=== PATIENT | female | born 1955 | race Caucasian/White ===

== ENCOUNTER → 2017-09-16 15:15 | Outpatient (CLI) | payer OTHER, SELFPAY ==
--- NOTE | 2017-09-16 15:21 | BI_ITS ---
MAMMOGRAPHY - BILATERAL SCREENING REASON FOR EXAM: Female, 61 years old. Routine annual screening examination. PERTINENT HISTORY: Non-contributory. TECHNIQUE: Digital bilateral breast timothy (3D mammographic acquisition) in the CC and MLO projections. 2-D mediolateral oblique (MLO) and craniocaudad (CC) views of both breasts were obtained. CAD: Full Field Digital Mammography with Computer Added Detection was performed. COMPARISON: Comparison is made with prior study dated January 18, 2013. FINDINGS: Breast Composition: There are scattered areas of fibroglandular density. There is a 6.1 mm slightly ill-defined nodule in the deep midportion of the right breast. The patient will be recalled for additional views including 90 degree lateral and compression spot views. No other significant abnormalities are identified. BI/SCREENING MAMM (CAD), BILAT IMPRESSION: 6.1 mm nodular density in the right breast as described. The patient will be recalled for additional views. Recall Side: Right Breast ASSESSMENT CATEGORY: BIRADS Category 0: Incomplete. Need additional imaging evaluation. A letter regarding these results will be sent to the patient by the facility within 30 days. Approximately 10% of breast cancers are not detected by mammography. A normal mammogram should not delay biopsy of a clinically suspicious abnormality. [id number] Electronically Signed: Ajith Espinoza MD at 8:22 EDT Tel [phone], Service support ,
== END ==
PROVIDERS: Family Provider Family Medicine; PCP Family Medicine; Visit Provider Family Medicine
DX: Z12.31 Encounter for screening mammogram for malignant neoplasm of breast (principal); N63.10 Unspecified lump in the right breast, unspecified quadrant
CPT/HCPCS: 77063; 77067

== ENCOUNTER → 2017-09-26 09:23 | Outpatient (CLI) | payer OTHER, SELFPAY ==
--- NOTE | 2017-09-26 09:31 | US_ITS ---
STUDY: ULTRASOUND BREAST - RIGHT REASON FOR EXAM: Female, 62 years old. Nodular density in the right breast noted on the screening mammography TECHNIQUE: Axial and longitudinal images of the RIGHT breast were performed with a high resolution ultrasound transducer. COMPARISON: None. FINDINGS: RIGHT Breast: There is no evidence of cyst formation, abnormal mass or other ultrasound abnormality is seen in the right breast. US/Breast Complete Unilateral IMPRESSION: Benign findings. ASSESSMENT CATEGORY: BIRADS Category 2: Benign. A letter regarding these results will be sent to the patient by the facility within 30 days. Electronically Signed: Margy Killian MD at 13:39 EDT Tel , Service support ,
--- NOTE | 2017-09-26 09:31 | BI_ITS ---
MAMMOGRAPHY - UNILATERAL DIAGNOSTIC: RIGHT BREAST REASON FOR EXAM: Female, 62 years old. 6.1 mm nodular density in the right breast PERTINENT HISTORY: Non-contributory. TECHNIQUE: Digital unilateral spot compression views (3D mammographic acquisition) in the CC and MLO projections. 2-D lateral medial (LM) of the right breast were obtained. CAD: Full Field Digital Mammography with Computer Added Detection was performed. COMPARISON: None. FINDINGS: Breast Composition: There are scattered areas of fibroglandular density. There are no dominant masses or suspicious calcifications. The previously described nodular density disperses was spot compression and is not seen on the lateral medial view. An ultrasound evaluation of the right breast is recommended and is performed at the same day. Study evaluation of the No other significant abnormalities are identified. BI/DIAG MAMM W/CAD, UNILAT IMPRESSION: Further ultrasonographic evaluation recommended, as described above. (I) ASSESSMENT CATEGORY: BIRADS Category 0: Incomplete. Need additional imaging evaluation. A letter regarding these results will be sent to the patient by the facility within 30 days. Approximately 10% of breast cancers are not detected by mammography. A normal mammogram should not delay biopsy of a clinically suspicious abnormality. Electronically Signed: Margy Killian MD at 13:36 EDT Tel , Service support ,
== END ==
PROVIDERS: Family Provider Family Medicine; PCP Family Medicine; Visit Provider Family Medicine
DX: R92.8 Other abnormal and inconclusive findings on diagnostic imaging of breast (principal)
CPT/HCPCS: 76641; 76642; 77062; 77065; G0279

== ENCOUNTER → 2018-06-26 09:08 | Outpatient (CLI) | payer OTHER, SELFPAY ==
[2018-06-26 12:20] LABS: Absolute Lymphocyte Count 1.37 X10^3/ul (0.83-4.51); Absolute Neutrophil Count 2.3 X10^3/uL (2.0-7.7); Basophil# 0.03 X10^3/uL; Basophil% 0.7 % (0-1); Eosinophil# 0.13 X10^3/uL; Eosinophils% 3.1 % (0-5); Hematocrit 40.5 % (37-47); Hemoglobin 13.8 g/dl (12.0-15.0); Lymphocyte # 1.37 X10^3/ul (4.0); Lymphocyte % 32.3 % (19-41); Mean Corp Hgb Conc 34.1 g/gl (32-36); Mean Corpuscular Hgb 30.3 pg (27.0-32.0); Mean Corpuscular Volume 88.8 fL (81-99); Mean Platelet Vol. 11.5 fl (6.2-12.0); Monocyte# 0.41 X10^3/uL; Monocyte% 9.7 % (0-10); Neutrophil % 54.2 % (47-70); Platelet Count 212 K/mm3 (150-450); RBC Distribution Width CV 13.5 % (11.6-14.6); RBC Distribution Width SD 43.7 fl (35.1-43.9); Red Blood Count 4.56 M/mm3 (4.2-5.4); White Blood Count 4.2 K/mm3 (4.4-11.0)
[2018-06-26 12:21] LABS: POSITIVE COUNT NO; POSITIVE DIFFERENTIAL NO; POSITIVE MORPHOLOGY NO
[2018-06-26 12:37] LABS: Hemoglobin A1c 5.8 % (4.2-6.3)
[2018-06-26 12:39] LABS: ALB/GLOB Ratio 0.9 RATIO (0.9-2.4); AST(SGOT) 17 U/L (15-37); Alanine Aminotransfer ALT/SGPT 31 U/L (13-56); Albumin, Serum 3.7 g/dL (3.2-5.0); Alkaline Phosphatase 56 U/L (45-117); Anion Gap 4 (5-15); BUN 20 mg/dL (7-18); BUN/Creat Ratio 22.4 RATIO (10-20); Calcium,Total 8.3 mg/dL (8.5-10.1); Chloride 107 mmol/L (98-107); Cholesterol 212 mg/dL (200); Creatinine, Serum 0.89 mg/dL (0.55-1.02); EST Glomerular Filtration Rate 68 mL/min (>60); Est Glom Filt Rate - Afr Amer 82 mL/min (>60); Globulin 4.2 g/dL (2.2-4.2); Glucose 106 mg/dL (74-106); High Density Lipoprotein 35 mg/dL; Potassium 3.8 mmol/L (3.5-5.1); Protein, Total 7.9 g/dL (6.4-8.2); Sodium Level 139 mmol/L (136-145); Triglycerides 190 mg/dL; Very Low Density Lipoprotein 38 mg/dL (5-40)
== END ==
PROVIDERS: Family Provider Family Medicine; PCP Family Medicine; Visit Provider Family Medicine
DX: Z00.01 Encounter for general adult medical examination with abnormal findings (principal); I10 Essential (primary) hypertension; E78.1 Pure hyperglyceridemia; R73.01 Impaired fasting glucose
CPT/HCPCS: 36415; 80053; 80061; 83036; 85025

== ENCOUNTER → 2020-01-29 08:49 | Outpatient (CLI) | payer OTHER, SELFPAY ==
[2020-01-29 12:09] LABS: Absolute Lymphocyte Count 1.47 X10^3/uL (0.83-4.51); Absolute Neutrophil Count 2.4 X10^3/uL (2.0-7.7); Basophil# 0.03 X10^3/uL; Basophil% 0.7 % (0-1); Eosinophils% 2.3 % (0-5); Hematocrit 44.3 % (37-47); Hemoglobin 14.8 g/dL (12.0-15.0); Lymphocyte # 1.47 X10^3/ul (4.0); Lymphocyte % 33.6 % (19-41); Mean Corp Hgb Conc 33.4 g/dL (32-36); Mean Corpuscular Hgb 30.4 pg (27.0-32.0); Mean Platelet Vol. 11.7 fl (6.2-12.0); Monocyte# 0.41 X10^3/uL; Monocyte% 9.4 % (0-10); NRBC Flagged by Analyzer 0 % (0-5); Neutrophil # 2.35 X10^3/uL (2.7-7.7); Neutrophil % 53.8 % (47-70); Platelet Count 253 K/mm3 (150-450); RBC Distribution Width SD 43.3 fl (35.1-43.9); Red Blood Count 4.87 M/mm3 (4.2-5.4); White Blood Count 4.4 K/mm3 (4.4-11.0)
[2020-01-29 12:24] LABS: Hemoglobin A1c 5.7 % (3.8-5.6)
[2020-01-29 12:25] LABS: ALB/GLOB Ratio 0.8 RATIO (0.9-2.4); AST(SGOT) 22 U/L (15-37); Alanine Aminotransfer ALT/SGPT 36 U/L (13-56); Albumin, Serum 3.9 g/dL (3.2-5.0); Alkaline Phosphatase 54 U/L (45-117); Anion Gap 7 (5-15); BUN 15 mg/dL (7-18); BUN/Creat Ratio 18.1 RATIO (10-20); Calcium,Total 9.1 mg/dL (8.5-10.1); Chloride 103 mmol/L (98-107); Cholesterol 219 mg/dL (200); Creatinine, Serum 0.83 mg/dL (0.55-1.02); EST Glomerular Filtration Rate 73 mL/min (>60); Est Glom Filt Rate - Afr Amer 89 mL/min (>60); Globulin 4.6 g/dL (2.2-4.2); Glucose 102 mg/dL (74-106); High Density Lipoprotein 39 mg/dL; Potassium 3.7 mmol/L (3.5-5.1); Protein, Total 8.5 g/dL (6.4-8.2); Sodium Level 137 mmol/L (136-145); Triglycerides 237 mg/dL; Very Low Density Lipoprotein 47 mg/dL (5-40)
== END ==
PROVIDERS: PCP Family Medicine; Visit Provider Family Medicine
DX: Z00.00 Encounter for general adult medical examination without abnormal findings (principal); R73.01 Impaired fasting glucose
CPT/HCPCS: 36415; 80053; 80061; 83036; 85025

== ENCOUNTER 2021-10-21 12:22 | Emergency (ER) | payer MEDICARE, OTHER, SELFPAY ==
[2021-10-21 12:24] VITALS: BP 167/110; PULSE 102; RESP 16; TEMP 36.7; O2SAT 98; BMI 33.5
--- NOTE | 2021-10-21 12:37 | EX.ED.DYSGE1 ---
HPI History of Present Illness Chief Complaint: Lower Extremity Injury Narrative Narrative: Patient was seen outpatient for the past week and was complaining of leg pain, it was rating into the groin and the thought was that she may have had a kidney stone she had a CT which showed a uterine mass. She subsequently went for an MRI and was found to have a large uterine mass with another necrotic mass in the left adnexa and also a probable DVT in the left external iliac vein. She was sent to the emergency department for this. 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 She has no prior DVT history. [facility] Medical History CHF (congestive heart failure) HTN (hypertension) Kidney stone Tonsillectomy planned Home Medications apixaban 5 mg (74 tabs) tablets in a dose pack (Eliquis DVT-PE Treat 30D Start) 5 mg PO BID #74 tabs 10/21/21 [Rx Last Taken Unknown] Allergy/AdvReac Type Severity Reaction Status Date / Time erythromycin base Allergy Hives Verified 10/21/21 12:23 Penicillins Allergy Hives Verified 10/21/21 12:23 Social History Smoking Status: Never smoker ROS ROS ED ROS Narrative Past medical history: Reviewed Medications: Reviewed Social history: Noncontributory Review of systems: All systems negative except as indicated General: No fever Eyes: No visual changes ENT: No upper airway congestion, normal voice Neck: No neck pain Cardiovascular: No chest pain Respiratory: No shortness of breath or cough Gastrointestinal: Some abdominal pain in the left lower abdomen and suprapubic region Genitourinary: No dysuria Musculoskeletal: Left leg pain as in HPI Skin: No rash Neurological: No memory loss, confusion or any focal weakness Psych: No recent behavioral changes Hematologic: No easy bleeding or easy bruising EXAM Physical Exam Narrative Exam Narrative: Physical exam General: Well nourished, Well developed, No Acute Distress Head: Normocephalic, Atraumatic Eyes: Conjunctiva not pale ENT: Moist mucous membranes Neck: Supple, Nontender, No lymphadenopathy Cardiovascular: Regular rate, Regular rhythm Respiratory: No distress, CTA bilaterally Abdomen: Soft, mild suprapubic pain Back: Nontender, Normal Inspection. Negative for: CVA tenderness Extremities: No edema there is some tenderness in the quadricep region and inner thigh region on the left. Skin: Normal color, No rash Neurological: Alert, Normal Strength, Normal Sensation Psychological: Normal affect Const Vital Signs: 10/21/21 12:24 Temperature 98.1 F Temperature Source Temporal Pulse Rate 102 H Respiratory Rate 16 Blood Pressure 167/110 H Blood Pressure Mean 129 Pulse Ox 98 Oxygen Delivery Method Room Air Discharge Plan Triage Chief Complaint: Lower Extremity Injury ED Provider: Jesus Weeks Dx/Rx/DC Orders Clinical Impression: Mass of uterus, DVT (deep venous thrombosis) Instructions: DVT Dc Prescriptions: New Eliquis DVT-PE Treat 30D Start 5 mg (74 tabs) tablets,dose pack 5 mg PO BID Qty: 74 0RF Primary Care Provider: Laurent Mcfadden Referrals: Laurent Mcfadden, [Primary Care Provider] - Activity Restrictions/Additional Instructions: You Have an appointment with Dr. Jose Armando Rodriguez on Tuesday at 1030 a.m. This is at [address], [address], [place] [address]. [address] where he got your MRI she can get it CD copy of that to take with you. Disposition Disposition: Home, Self Care
[2021-10-21] MEDS: APIXABAN 5 MG TABLET PO (12:51)
[2021-10-21 13:41] VITALS: BP 156/78; PULSE 66; RESP 14; TEMP 37.1; O2SAT 99
== END 2021-10-21 13:45 | disposition home or self-care (01) ==
PROVIDERS: Emergency Provider Emergency Medicine; PCP Family Medicine; Visit Provider Emergency Medicine
DX: N85.8 Other specified noninflammatory disorders of uterus (principal); I82.402 Acute embolism and thrombosis of unspecified deep veins of left lower extremity
CPT/HCPCS: 99283

== ENCOUNTER → 2021-11-23 | Outpatient (CLI) | payer MEDICARE, OTHER, SELFPAY ==
--- NOTE | 2021-11-23 06:44 | CT_ITS ---
EXAM: CT CHEST WITH INTRAVENOUS CONTRAST CLINICAL INDICATION: ENDOMETRIAL CA-INITIAL WORK UP TECHNIQUE: Helically acquired images were obtained of the chest with intravenous contrast. This CT exam was performed using one or more of the following dose reduction techniques: automated exposure control, adjustment of the mA and/or kV according to patient size, and/or use of iterative reconstruction technique. This report was created using [employer] report generation technology. RADIATION DOSE: CTDIvol = 11.86 mGy, DLP = 456.42 mGy-cmContrast: IV 100mL Isovue-370 COMPARISON: None. FINDINGS: LUNGS AND PLEURAL SPACES: No suspicious pulmonary nodules. No pleural effusion or thickening. No pneumothorax. HEART: Unremarkable. Heart size is normal. No pericardial effusion. No significant coronary artery calcifications. MEDIASTINUM: Unremarkable. No mediastinal or hilar adenopathy. Esophagus is unremarkable. No hiatal hernia. THYROID: Bilateral complex cystic or necrotic masses in the thyroid, the right is 4.4 cm AP by at least 4 cm craniocaudal, the left is 3.6 cm AP by 4.2 cm craniocaudal, with 2 small additional hypodense lesions in the lower pole left kidney and subtle lesion in the isthmus. Diffusely enlarged thyroid and presumed multinodular goiter but thyroid ultrasound is suggested if not previously evaluated. BONES/JOINTS: Unremarkable. No suspicious lytic or blastic abnormality. VASCULATURE: Unremarkable. Thoracic aorta is non-dilated. No thoracic aortic dissection. No obvious central pulmonary embolism although this study was not performed with the pulmonary embolism protocol. LYMPH NODES: No mediastinal adenopathy. LIVER: Mild low-attenuation fatty liver is partially included. CT/Chest WITH Contrast IMPRESSION: 1. No acute intrathoracic abnormality. No evidence of metastatic intrathoracic disease. 2. Diffusely enlarged multinodular thyroid. Report from October 20, 2012 thyroid ultrasound mentioned 4.5 cm solid nodule in the right lobe and 1.9 cm solid nodule in the left lobe and subcentimeter cyst. Radionuclide exam of the thyroid in 2012 described findings consistent with multinodular goiter. Correlate clinically with any interval change on exam from 2013, repeat imaging could be considered if thought to be indicated. Electronically Signed: Ivette Castorena MD at 8:13 EDT ,
[2021-11-23 07:11] LABS: CREATININE FINGERSTICK < 0.9 mg/dL (0.55-1.02); EGFR FINGERSTICK > 60.0000 mL/min (>60)
== END | disposition home or self-care (01) ==
LOC: CT 06:43
PROVIDERS: PCP Family Medicine; Referring Provider Internal Medicine Medical Oncology; Visit Provider Internal Medicine Medical Oncology
DX: C54.1 Malignant neoplasm of endometrium (principal)
CPT/HCPCS: 71260; Q9967

== ENCOUNTER 2021-11-25 09:20 | Day surgery (SDC) | payer MEDICARE, OTHER, SELFPAY ==
--- NOTE | 2021-11-25 09:38 | PCM.HP.BLA ---
History and Physical Date of Admission: 11/25/21 Intake Vital Signs ? 11/24/2207:49 Height 5 ft 6 in Weight: 203 lb BMI 32.8 BP 139/93 H Blood Pressure Location Rt brachial Position Sitting Respiration 16 Pulse 80 Pulse Source Monitor Temp 97.7 F L Temp Source Temporal Pulse Oximetry (%) 99 Oxygen Delivery Method room air Intake Visit Reasons:?PORT PLACEMENT Chief Complaint: Port Placement Hospice Community Liaison Required: No Is patient in pain?: No Allergies erythromycin base Allergy (Verified 11/23/21 08:52) HivesPenicillins Allergy (Verified 11/23/21 08:52) Hives Medications amlodipine 10 mg tablet 10 mg PO DAILY 11/18/21 [History Confirmed 11/23/21] hydrochlorothiazide 12.5 mg capsule 12.5 mg PO DAILY 11/18/21 [History Confirmed 11/23/21] PFSH Medical History?(Updated 11/23/21 @ 09:[address] Giovanni Baltazar MD) CHF (congestive heart failure) History of blood clots HTN (hypertension) Kidney stone Tonsillectomy planned Surgical History? H/O: hysterectomy Hx of tonsillectomy Family History? Mother Heart disease DiabetesGrandfather Cancer ?? ? prostateOther Bleeding disorder Social History? Smoking Status:? Never smoker HPI HPI HPI: 66-year-old female with endometrial cancer here for discussion of chest port placement.? ROS General General: No weight change, appetite, fatigue, colon cancer, breast cancer or weakness HEENT HEENT: No difficulty swallowing, eye injury, eye surgery, swollen glands or hoarseness Endo Endocrine: No thyroid disease, diabetes mellitus, thyroid cancer, Hair loss, heat intolerance or cold intolerance Skin Skin: No rash or changing moles Musc Musculoskeletal: No back problems, arthritis, rheumatoid arthritis, gout or joint pain Cardio Cardiovascular: Yes high blood pressure; No murmur, pacemaker, heart disease, atrial fibrillation, heart attack, heart stent, palpitations, shortness of breat with exertion or chest pain Psych Psychiatric: No depression, anxiety or hearing voices Resp Respiratory: No shortness of breath, No sleep apnea, No cough, No COPD, No asthma, No emphysema and No wheezing Gastro Gastrointestinal: No abdominal pain, No nausea or vomiting, No diarrhea, No constipation, No blood in stool, No acid reflux, No hemorrhoids, No ulcers, No gallbladder problem and No black,tarry stools Ishan Hematologic: No blood thinners, No blood disorders, No bleeding, No anemia and Yes blood clots Neuro Neurologic: No system reviewed and no additional complaints, except as documented, No as per HPI, No abnormal gait, No abnormal hearing, No abnormal movements, No abnormal speech, No behavioral changes, No burning sensations, No confusion, No convulsions, No disequilibrium, No dizziness, No localized weakness, No frequent falls, No headache(s), No lack of coordination, No loss of vision, No memory loss, No numbness, No other visual disturbances, No radicular pain, No restless legs, No sensory deficit, No syncope, No tingling, No tremor(s), No weakness and No other Exam Const General: cooperative Orientation: alert and oriented x3 [facility] Head: normal to inspection Neck Neck: normal visual inspection and full ROM Chest Chest palpation & inspection: normal inspection of the chest Resp Effort & Inspection: normal respiratory effort Auscultation: clear to auscultation bilaterally Cardio Rate: regular rate Rhythm: regular rhythm GI Inspection: non-distended Palpation: soft and nontender Skin General: no rashes or lesions noted Neuro General: patient alert and patient oriented x3 Extrem General: full ROM Psych Appearance: grossly normal Mental Status: mental status grossly normal Assessment and Plan Assessment and Plan (1) Encounter for insertion of venous access port: ?Status:?Acute ?Plan: The patient is here to discuss chest port placement for endometrial cancer.? I discussed right chest port placement with her in detail.? I discussed the procedure in detail as well as the risks including modality to bleeding, pneumothorax, infection, line infection or DVT.? Patient understands all the risks and is willing to proceed. Giovanni Baltazar MD Pager: [facility] [address] [place] [address], [address] [place] [address] Office: I have re-examined the patient. There are no clinical changes since date of exam.
[2021-11-25 09:39] VITALS: BP 131/80; PULSE 86; RESP 16; TEMP 36.7; O2SAT 100; BMI 31.2
[2021-11-25] MEDS: Lactated Ringers 1,000 ML 15 ML IV (09:45)
[2021-11-25] MEDS: Clindamycin 900 MG/50 ML BAG 75 MG IV (11:25)
[2021-11-25] MEDS: Lidocaine 1% /Epi 1:100 (20ml) 20 ML Vial (11:38)
[2021-11-25 12:00] VITALS: BP 121/62; BP 131/80; PULSE 67; RESP 16; TEMP 36.6; O2SAT 98
--- NOTE | 2021-11-25 12:00 | PCM.OPRPT ---
Report of Operation Date of Procedure: 11/25/21 Pre-Operative Diagnosis: Endometrial cancer and need for vascular access port Post-Operative Diagnosis: Same Surgery/Procedure Performed:: Ultrasound and fluoroscopy guided right chest port placement utilizing right IJ Description of Procedure: After obtaining informed consent patient was brought back to the operating room MAC anesthesia was induced and the right chest and neck were prepped in normal sterile fashion. Ultrasound was used to evaluate both IJs and the right IJ was selected. Next, using a needle, the right IJ was accessed and a guidewire was passed on into the superior vena cava under fluoroscopy guidance. A small incision was made over the puncture site and the dilator introducer was placed over the guidewire. Next this was capped and the pocket was made for the port. 1% lidocaine with epinephrine was injected in the proposed port site. An incision was made with scalpel. Electrocautery was used to make a pocket under the skin and subcutaneous tissue. Hemostasis was obtained. Next, the catheter was tunneled up to the neck incision site and placed through the introducer. The peel-away introducer was removed and the position of the catheter was confirmed on fluoroscopy. Next, the catheter was trimmed and attached to the port with the locking device. Interrupted 2-0 Vicryl sutures were used to anchor the port to the chest wall and then the port was placed inside the pocket. The pocket was then flushed with saline and the port irrigated with saline. There was good blood return and the port flushed easily. Next, heparin was injected into the port. The skin was closed with subcutaneous interrupted 3-0 Vicryl sutures. A single 3-0 Vicryl sutures placed under the skin at the neck incision site. Steri-Strips were placed as well as op sites. Patient tolerated procedure well, was taken to PACU in stable condition. Chest x-ray will be obtained. Grafts/Implants Used: 8 [employer] PowerPort Admit VTE Documentation VTE Mechan Device Prophylaxis: SCD's
--- NOTE | 2021-11-25 12:01 | DCINST_ITS ---
Discharge Instructions Procedure Port-A-Cath Diet Discharge Diet: Light diet - advance as tolerated (Pain medication may cause nausea. You should typically eat light foods as you take your pain medication.) Activity Discharge Activity: Return to Normal Activity and May Shower (with your bandage in place in 1-2 days after surgery. DO NOT SHOWER WHEN YOUR PORT IS ACCESSED.) Dressing / Incision Call your doctor if your incision/area has: Continuous Slow Oozing, Sudden Increased Bleeding, Increased Pain/ Swelling, Increased Redness and Foul Smelling Discharge Call your doctor if you observe: Fever of 101 or Higher Remove Dressing in: 2 days Cleanse incision/area with: Soap & Water Follow Up Care Please Follow Up With: Giovanni Baltazar MD When: as needed [phone] Test Results: Test results from this visit will be discussed in further detail at your follow- up appointment, if applicable. Discharge Plan Admission Attending Provider: Giovanni Baltazar Primary Care Provider: Laurent Mcfadden Discharge Orders/Prescriptions Prescriptions: No Action amlodipine 10 mg tablet 10 mg PO DAILY hydrochlorothiazide 12.5 mg capsule 12.5 mg PO DAILY lidocaine-prilocaine 2.5-2.5 % cream 1 applic topical ONCE PRN (Reason: port access) 30 Days Qty: 30 2RF ondansetron 8 mg tablet,disintegrating 8 mg PO Q8H PRN (Reason: nausea and vomiting) Qty: 30 2RF prochlorperazine maleate 10 mg tablet 10 mg PO Q6H PRN (Reason: nausea and vomiting) Qty: 30 2RF Referrals / Follow Up: Laurent Mcfadden DO [Primary Care Provider] - Disposition Disposition (needs filled in before D/C Order can be placed): Home, Self Care
[2021-11-25 12:05] VITALS: BP 112/64; BP 131/80; PULSE 68; RESP 16; O2SAT 100
[2021-11-25 12:10] VITALS: BP 113/64; BP 131/80; PULSE 65; RESP 16; O2SAT 100
--- NOTE | 2021-11-25 12:10 | RAD_ITS ---
STUDY: X-RAY CHEST REASON FOR EXAM: Female, 66 years old. Line placement -- in pacu TECHNIQUE: Single frontal view of the chest. COMPARISON: CT dated 11/23/2021 FINDINGS: The lungs are clear and expanded. There is no demonstrated pleural abnormality. Normal size heart. There is a right-sided central venous catheter placed terminating within the expected region of these appear vena cava. Normal mediastinum and pamella. Normal visualized pulmonary arteries. Normal visualized aortic arch and descending thoracic aorta. Normal visualized thoracic spine. Normal visualized ribs, clavicles, and shoulders. There is no demonstrated abnormality of the visualized soft tissue structures of the upper abdomen. RAD/CXR for Line Placement IMPRESSION: Right sided central venous catheter terminating within the expected region of the superior vena cava. Electronically Signed: Shawna Wiley MD at 12:34 EDT ,
[2021-11-25 12:14] VITALS: BP 112/62; BP 131/80; PULSE 61; RESP 16; TEMP 36.4; O2SAT 100
[2021-11-25 12:50] VITALS: BP 131/80
== END 2021-11-25 12:53 | disposition home or self-care (01) ==
LOC: SDC 09:21 → AC 09:22
PROVIDERS: PCP Family Medicine; Referring Provider Surgery; Visit Provider Surgery
PROC: (CPT 36561; principal; 2021-11-25 10:45)
DX: Z45.2 Encounter for adjustment and management of vascular access device (principal); C54.1 Malignant neoplasm of endometrium; I10 Essential (primary) hypertension; Z86.718 Personal history of other venous thrombosis and embolism; Z79.899 Other long term (current) drug therapy
CPT/HCPCS: 36561; 00532; 71045; 77001; J7120; C1788; J2405

== ENCOUNTER → 2022-05-13 | Outpatient (CLI) | payer MEDICARE, OTHER, SELFPAY ==
--- NOTE | 2022-05-13 07:46 | CT_ITS ---
STUDY: CT ABDOMEN AND PELVIS WITH CONTRAST REASON FOR EXAM: Female, 66 years old. IV ONLY-ASSESS TREATMENT RESPONSE. History of endometrial carcinoma. Recent chemotherapy. RADIATION DOSAGE (If Supplied By Facility): CTDIvol = ( 13.83 ) mGy, DLP = ( 977.34 ) mGycm TECHNIQUE: Transaxial images were obtained from the dome of the diaphragm to the symphysis pubis without oral contrast. IV 100mL Isovue-370 was administered. Sagittal and coronal images were reconstructed. Individualized dose optimization techniques were used for this CT. COMPARISON: None. FINDINGS: The visualized lung bases are unremarkable. The visualized portions of the heart are within normal limits. There is decreased attenuation of the liver consistent with steatosis. Normal gallbladder and extrahepatic biliary system. Normal spleen. Normal pancreas. Normal bilateral adrenal glands. There is an heterogeneously enhancing mass in the lateral midportion of the right kidney measuring 2.4 cm x 1.6 x 2.6 cm. A neoplastic process should be ruled out. 8 mm cyst is seen along the anterior aspect of the left kidney as well as a 1 cm cyst in the posterior medial aspect of the left kidney. Normal visualized stomach. Normal small intestine. There are multiple colonic diverticula consistent with diverticulosis. The appendix is visualized and appears normal. Normal abdominal aorta. There is an IVC filter in place. Normal retroperitoneum. Normal urinary bladder. There is absence of the uterus consistent with a prior hysterectomy. Normal abdominal wall. There are diffuse degenerative changes of the visualized lumbar spine. CT/Abdomen/Pelvis WITH Contrast IMPRESSION: 2.4 cm x 1.6 cm x 2.6 cm heterogeneously enhancing mass in the lateral midportion of the right kidney as described. A neoplastic process should BE ruled out. The patient is status post hysterectomy. A filter is seen within the inferior vena cava. Electronically Signed: Ajith Espinoza MD at 14:31 EST ,
[2022-05-13] MEDS: 0.9% Saline Lock 10 ML Syringe IV (08:04)
== END | disposition home or self-care (01) ==
LOC: CT 07:45
PROVIDERS: PCP Family Medicine; Visit Provider Internal Medicine Medical Oncology
DX: C54.1 Malignant neoplasm of endometrium (principal)
CPT/HCPCS: 74177; Q9967; A4216

== ENCOUNTER → 2022-05-27 | Outpatient (CLI) | payer MEDICARE, SELFPAY ==
--- NOTE | 2022-05-27 07:54 | MRI_ITS ---
STUDY: MRI ABDOMEN WITH AND WITHOUT CONTRAST REASON FOR EXAM: Female, 66 years old. ATTN: kidneys -- ANBNORMAL CT- right KIDNEY MASS- Hx of uterine CA TECHNIQUE: Standardized fat and water weighted pulse sequences were obtained in all 3 orthogonal planes post contrast administration. 19 cc clariscan was administered for the contrast portion of the examination. COMPARISON: 05/13/2022 FINDINGS: Base of the chest is unremarkable. Normal liver. Normal gallbladder and extrahepatic biliary system. Normal spleen. Normal pancreas. Normal bilateral adrenal glands. Solid (intermediate T1, isointense to increased T2) mass of the lateral right kidney measuring 2.8 x 2.6 x 2.4 cm correlates the lesion on recent CT. On out of phase imaging, no significant signal dropout. Following IV contrast, there is moderate, heterogeneous enhancement. The right renal vein is patent. No perinephric adenopathy. No hydronephrosis. Simple, nonenhancing cysts of the bilateral kidneys (Bosniak I) measure up to 1.1 cm on the left side. Visualized hollow viscus structures are unremarkable. Normal abdominal aorta. There is an IVC filter in place. Normal retroperitoneum. Normal abdominal wall. No bone marrow edema. MRI/MRI Abd WITH and W/O Contrast IMPRESSION: Solid right renal mass with contrast enhancement. Differential considerations include clear cell/chromophobic RCC, oncocytoma, minimal fat angiomyolipoma. Recommend either surgical resection (if surgical candidate) versus biopsy to guide treatment decisions/active surveillance. Electronically Signed: Raymon Castillo ([place]), at 10:22 EDT ,
[2022-05-27] MEDS: 0.9% Saline Lock 10 ML Syringe IV (09:32)
== END | disposition home or self-care (01) ==
PROVIDERS: PCP Family Medicine; Referring Provider Internal Medicine Medical Oncology; Visit Provider Internal Medicine Medical Oncology
DX: N28.89 Other specified disorders of kidney and ureter (principal)
CPT/HCPCS: 74183; A9575; A4216

== ENCOUNTER 2022-09-29 10:42 | Observation (INO) | payer MEDICARE, SELFPAY ==
[2022-09-29] VITALS (11 sets, daily range): BP systolic 117–143; BP diastolic 60–74; PULSE 54–88; RESP 16–18; TEMP 35.9–36.8; O2SAT 92–100; BMI 33.0
[2022-09-29] MEDS: Lactated Ringers 1,000 ML 15 ML IV (09:57)
--- NOTE | 2022-09-29 10:42 | PCM.HP.STD ---
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 CINV (chemotherapy-induced nausea and vomiting) Dizziness Encounter for chemotherapy management Encounter for education History of blood clots History of edema History of rheumatic fever HTN (hypertension) Low iron Migraine headache Neuropathy Non-smoker Shortness of breath on exertion Sinus drainage Syncope Wears glasses Home Medications amlodipine 10 mg tablet 10 mg PO DAILY 11/18/21 [History Last Taken 09/29/22] hydrochlorothiazide 12.5 mg capsule 12.5 mg PO DAILY 11/18/21 [History Last Taken Unknown] lidocaine-prilocaine 2.5 %-2.5 % topical cream 1 applic topical ONCE PRN port access 30 days #30 grams 11/23/21 [Rx Last Taken Unknown] ondansetron 8 mg disintegrating tablet 8 mg PO Q8H PRN nausea and vomiting #30 tabs 11/23/21 [Rx Last Taken Unknown] Hair prosthesis #1 ea 05/04/22 [Rx Last Taken Unknown] polysaccharide iron complex 150 mg iron capsule (Ferrex) 150 mg PO DAILY 09/15/22 [History Last Taken Unknown] docusate sodium 100 mg capsule (Colace) 100 mg PO BID #20 caps 09/29/22 [Rx Last Taken Unknown] oxycodone 5 mg tablet 5 mg PO Q6H PRN pain 7 days #14 tabs 09/29/22 [Rx Last Taken Unknown] Allergy/AdvReac Type Severity Reaction Status Date / Time erythromycin base Allergy Hives Verified 09/29/22 09:49 Penicillins Allergy Hives Verified 09/29/22 09:49 Family History Mother Heart disease Diabetes Grandfather Cancer prostate Other Bleeding disorder Surgical History (Updated 09/15/22 @ 13:18 by Barbara Chang) H/O: hysterectomy History of superior vena cava filter placement History of surgery History of surgery Hx of tonsillectomy Social History Smoking Status: Never smoker Vital Signs Vital Signs Vital Signs: 09/29/22 09:51 09/29/22 09:51 Temperature 97.6 F L Temperature Source Temporal Pulse Rate 79 Respiratory Rate 16 Respiratory Pattern Normal Blood Pressure 136/69 H Blood Pressure Mean 91 Blood Pressure Source Monitor Blood Pressure Position Semi-Fowlers Blood Pressure Location Left Arm Pulse Ox 100 Oxygen Delivery Method Room Air Weight Weight: 93 kg Body Mass Index (BMI) 33.0
--- NOTE | 2022-09-29 10:43 | DCINST_ITS ---
Discharge Instructions Diet Discharge Diet: No restrictions and Light diet - advance as tolerated Activity Discharge Activity: Return to Normal Activity Return to work on:: 10/27/22July shower in (days): 1 Lifting Restrictions: no lifting for 6 weeks. Follow Up Care Please Follow Up With: Bernardo Uribe MD When: 2 weeks Test Results: Test results from this visit will be discussed in further detail at your follow- up appointment, if applicable. Discharge Plan Admission Primary Reason for Your Visit: right partial nephrectomy Attending Provider: Bernardo Uribe Primary Care Provider: Laurent Mcfadden Discharge Orders/Prescriptions Prescriptions: New oxycodone 5 mg tablet 5 mg PO Q6H PRN (Reason: pain) 7 Days Qty: 14 0RF docusate sodium [Colace] 100 mg capsule 100 mg PO BID Qty: 20 0RF Continued amlodipine 10 mg tablet 10 mg PO DAILY hydrochlorothiazide 12.5 mg capsule 12.5 mg PO DAILY lidocaine-prilocaine 2.5-2.5 % cream 1 applic topical ONCE PRN (Reason: port access) 30 Days Qty: 30 2RF ondansetron 8 mg tablet,disintegrating 8 mg PO Q8H PRN (Reason: nausea and vomiting) Qty: 30 2RF polysaccharide iron complex [Ferrex 150] 150 mg iron capsule 150 mg PO DAILY (DME) Hair prosthesis See Rx Instructions .Route .MEDSUPPLY Qty: 1 0RF Rx Instructions: As directed Referrals / Follow Up: Bernardo Uribe MD [Med Staff - Active Staff] - Laurent Mcfadden DO [Primary Care Provider] - Disposition Disposition (needs filled in before D/C Order can be placed): Home, Self Care
[2022-09-29] MEDS: Cefazolin 2 GM in 0.9% Normal Saline 100 ML IV (10:47)
--- NOTE | 2022-09-29 11:35 | KID_PTH ---
PATIENT: BRYANNA CARMONA LOC: [facility] U#:[id number] AGE/SX: 67/F ROOM: GA318 RE09/29/[address]: Dr. Bernardo Uribe MD : 1955 BED: 1 DIS: 09/30/2022 SPEC #: [id number] RECD: 09/29/22 14:18 STATUS: [place] #: [id number] DENISE: 09/29/22 11:[address]: Bernardo Uribe DEPT: SURGICAL PATHOLOGY RECD BY: Karey Singh ENTERED: 09/30/22 10:43 SP TYPE: KIDNEY OTHR DR: Dr. Laurent Mcfadden, Tissues: A - Fatty tissue of breast B - Kidney, NOS Procedures: Gen Path Consultation (on slides) Surgery Specimen Level V HEADER OPERATION: Right laparoscopic robotic partial nephrectomy PRE-OP DIAGNOSIS: Right renal mass TISSUE SUBMITTED: A - Right kidney fat over tumor, B - Right renal mass MICROSCOPIC DIAGNOSIS A. Right kidney, fat over tumor, biopsy: Mature adipose tissue. No evidence of malignancy. B. Right renal mass, partial nephrectomy: Consistent with Oncocytoma. See Comment. AM:ketty 10/01/2022 COMMENT B. This case is reviewed in consultation with Dr. Ratliff of [facility] who concurs with the above diagnosis. The complete consultative report is viewable in EMR. Case has been reviewed in consultation with Dr. Mensah who concurs with the above diagnosis. IDC:TIERA MICROSCOPIC DESCRIPTION Slides are reviewed. GROSS DESCRIPTION A - Received in fixative is one container labeled with the patient's name and designated right kidney fat over tumor. The specimen consists of an irregular piece of adipose tissue measuring 3.0 x 2.5 x 1.0 cm. No mass lesion is identified. The entire specimen is submitted in two cassettes. B - Received in fixative is one container labeled with the patient's name and designated right renal mass. The specimen consists of a partial nephrectomy specimen weighing 8.5 gm and measuring 4.0 x 2.5 x 2.5 cm. Obvious parenchymal resection margin is not oriented. The entire surface of the specimen is inked, serially sectioned and reveal 90% of the specimen is replaced by hemorrhagic mass measuring 2.5 x 2.5 x 1.7 cm. Sections of the mass reveal hemorrhagic cut surfaces. Obvious area of necrosis is not seen. Two detached blood clots are also noted. The entire specimen is submitted in seven cassettes from one end to another. Cassette 7 also contains the detached blood clots. / TIERA:ketty 09/30/2022 TC:0 CPT: 72127 , 47469
--- NOTE | 2022-09-29 12:30 | PCM.OPRPT ---
Report of Operation Date of Procedure: 09/29/22 Pre-Operative Diagnosis: Right renal mass Post-Operative Diagnosis: Right renal mass Surgery/Procedure Performed:: Laparoscopic robotic assisted right partial nephrectomy Description of Surgical Findings:: Patient presents today for robotic partial nephrectomy for a solid enhancing mass in her right kidney She was taken back to the operating room at the smooth induction of anesthesia, she was placed supine on the table, Martinez catheter was placed, see was then transferred to full flank position with the table flexed. The abdomen was prepped and draped in usual sterile fashion. Made a small incision in the mid abdomen put a camera port there right arm port left arm port for the robot I then put an air seal port for suction. We for started off by reflecting the colon off the kidney incising the white line of Toldt and reflecting the colon off the kidney entirely and also mobilizing the liver off the kidney. I then kocherized the duodenum identified the inferior vena cava identified the renal vein and then below the renal vein dissected into the hilum and identified the renal artery. After the renal artery was identified then I went up to the kidney use ultrasound identified the tumor it was a 2.5 cm tumor in the lateral border of the right kidney a little bit posterior. The fat was cleaned off the tumor we did send off the fat over the tumor separate specimen and then we defatted the tumor in the kidney to allow for attempt resection. We placed a clamp on the renal artery and then we started with resecting of the tumor we started at the edge of the tumors all the way around use ultrasound identified by markers and then incised the capsule of the kidney and then got into the parenchyma and then dissected very close to the tumor but did not get into the tumor and enucleated the tumor off the parenchyma until we got inferiorly and then was able to then cauterized the blood vessels to the tumor and then came underneath the tumor and elevated the tumor off the kidney tumor was then removed intact without any violations total capsule gross total grossly was a complete resection. I then placed the tumor in Endo Catch bag and then we closed the resection site with a running V-Loc stitch and then we reapproximated the parenchyma with a running 0 Vicryl stitch using sliding clip technique. Once the parenchyma was reapproximated we unclamped the bulldog from the artery we lower the pressure there was no bleeding from the resection site we extracted the tumor through the air seal port we closed our support with a Víctor Turk stitch we checked again the kidney after 5 minutes with no pneumoperitoneum and there was no bleeding from the resection site the incisions are being closed patient anesthetic is being reversed blood loss very minimal successful removal of a complete tumor from the right kidney. All the sponges and needles were accounted currently being reversed from anesthesia. Surgeon: Bernardo Uribe Type of Anesthesia: General Drains: martinez Estimated Blood Loss (mL): 50 Admit VTE Documentation VTE Present on Admission: No VTE Mechan Device Prophylaxis: SCD's VTE Pharm Prophylaxis ordered?: No
[2022-09-29] MEDS: Bupivacaine Mpf 0.5% 30 ML VIAL (12:39)
[2022-09-29] MEDS: Lactated Ringers 1,000 ML 125 ML IV ×2 (15:47→23:47)
--- NOTE | 2022-09-29 20:00 | NURSING ---
This nurse and PUBLIC WORKS INSPECTOR assisted patient to standing position. Patient walked around her room with nurse and safety aide standing by. Pt did well and had no complaints. Pt did not feel dizzy and stated it felt good to stand up
[2022-09-29] MEDS: Ciprofloxacin 400 MG/200 ML BAG 200 MG IV (22:05)
[2022-09-30 03:00] VITALS: BP 115/56; PULSE 65; RESP 16; TEMP 36.8; O2SAT 93
--- NOTE | 2022-09-30 07:10 | PCM.PN.GU ---
Subjective Subjective s/p partial nephrectomy doing well d/c martinez heplock ivf d/c home Objective Data Objective Data Vital Signs: Vital Signs Temp Pulse Resp BP Pulse Ox O2 Del Method O2 Flow Rate 98.3 F 65 16 115/56 L 93 Room Air 2 09/30/22 03:00 09/30/22 03:00 09/30/22 03:00 09/30/22 03:00 09/30/22 03:00 09/30/22 03:00 09/29/22 17:02 Oxygen Flow Rate (L/min) 2 Oxygen Delivery Method Room Air Weight: 93 kg Body Mass Index (BMI) 33.0 Intake & Output: Intake and Output for Last 24 Hours 09/28/22 09/29/22 09/30/22 23:59 23:59 23:59 Intake Total 2397.5 / 2397.5 Output Total 490 / 890 800 / 800 Balance 1907.5 / 1507.5 -800 / -800
[2022-09-30 09:00] VITALS: BP 117/64; PULSE 64; RESP 14; TEMP 37; O2SAT 93
[2022-09-30 09:53] VITALS: O2SAT 87
--- NOTE | 2022-09-30 10:02 | PHA.DC.MC.R ---
Pharmacy [facility] Service has performed discharge medication reconciliation and counseling for this patient. The patient was counseled on the following discharge medications and changes in medications for homegoing were reviewed. 1. OXYCODONE 2. DOCUSATE The Reason for Use, instructions for use, and potential side effects were reviewed for all new medications. The patient's questions regarding all of their medications were answered. The patient was able to verbally demonstrate an understanding of their discharge medications. The patient's discharge medication list was reviewed for discrepancies and discrepancies were resolved. Patient counselled by Ki Amaro PharmD Candidate
[2022-09-30] MEDS: 0.9% Saline Lock 10 ML Syringe IV (10:22)
== END 2022-09-30 10:37 | disposition home or self-care (01) ==
LOC: MS3 14:35
PROVIDERS: Admitting Provider Urology; PCP Family Medicine; Referring Provider Urology; Visit Provider Urology
PROC: (CPT 50543; principal; 2022-09-29 11:15)
DX: D41.01 Neoplasm of uncertain behavior of right kidney (principal); I10 Essential (primary) hypertension; Z85.42 Personal history of malignant neoplasm of other parts of uterus; Z79.899 Other long term (current) drug therapy; G62.9 Polyneuropathy, unspecified; Z86.718 Personal history of other venous thrombosis and embolism; R06.02 Shortness of breath; E61.1 Iron deficiency
CPT/HCPCS: 50543; S2900; 00862; 88305; 88307; 88325; 93005; 96361; 96365; 99221; J7120; A4216; G0378; J0744; J2405

== ENCOUNTER → 2023-11-08 | Outpatient (CLI) | payer MEDICARE, SELFPAY ==
--- NOTE | 2023-11-08 14:44 | CT_ITS ---
STUDY: CT ABDOMEN AND PELVIS WITH CONTRAST REASON FOR EXAM: Female, 68 years old. HX OF ENDOMETRIAL CA RADIATION DOSAGE (If Supplied By Facility): CTDIvol = ( 16.88 ) mGy, DLP = ( 1070.22 ) mGycm TECHNIQUE: Transaxial images were obtained from the dome of the diaphragm to the symphysis pubis with oral contrast. Oral and amp; IV Readi-CAT and amp; 100mL Isovue-300 was administered. Sagittal and coronal images were reconstructed. Individualized dose optimization techniques were used for this CT. COMPARISON: None. FINDINGS: The visualized lung bases are unremarkable. The visualized portions of the heart are within normal limits. There is decreased attenuation of the liver consistent with steatosis. Normal gallbladder and extrahepatic biliary system. Normal spleen. Normal pancreas. Normal bilateral adrenal glands. The previously seen heterogeneous enhancing mass in the mid lateral portion of the right kidney has been resected. Cortical thinning at that site is seen. Stable small left renal cyst. Normal visualized stomach. Normal small intestine. There are multiple colonic diverticula consistent with diverticulosis. The appendix is visualized and appears normal. There is scattered atherosclerotic calcification of the abdominal aorta, without a demonstrated aneurysm. There is an IVC filter in place. Follow-up as recommended by the condominium property manager. Normal retroperitoneum. Normal urinary bladder. There is absence of the uterus consistent with a prior hysterectomy. Normal abdominal wall. There are degenerative changes of the visualized lumbar spine. CT/Abdomen/Pelvis WITH Contrast IMPRESSION: Status post resection of the enhancing mass in the lateral midportion of the right kidney with postoperative changes and cortical thinning. A filter is seen within the inferior vena cava. Follow up as per condominium property manager recommendation. Stable small left renal cyst. Fatty infiltration of the liver. Status post hysterectomy. Electronically Signed: Ajith Espinoza MD at 14:43 EDT ,
[2023-11-08 15:17] LABS: CREATININE FINGERSTICK < 1.0 mg/dL (0.55-1.02); EGFR FINGERSTICK > 60.0000 mL/min (>60)
[2023-11-08] MEDS: 0.9% Saline Lock 10 ML Syringe IV (15:38)
== END | disposition home or self-care (01) ==
LOC: CT 14:40
PROVIDERS: PCP Family Medicine; Referring Provider Internal Medicine Medical Oncology; Visit Provider Internal Medicine Medical Oncology
DX: C54.1 Malignant neoplasm of endometrium (principal); D30.01 Benign neoplasm of right kidney
CPT/HCPCS: 74177; Q9967; A4216

== ENCOUNTER → 2024-03-30 | Outpatient (CLI) | payer MEDICARE, SELFPAY | END | disposition home or self-care (01) | LOC: LAB.FUTURE 07:56 | PROVIDERS: PCP Family Medicine; Visit Provider Family Medicine | DX: E78.1 Pure hyperglyceridemia (principal) ==

== ENCOUNTER → 2024-04-24 | Outpatient (CLI) | payer MEDICARE, SELFPAY ==
--- NOTE | 2024-04-24 07:47 | BI_ITS ---
PROCEDURE: SCRN MAMM (CAD)W/RAE BILAT REASON FOR EXAM: F, Age 68 y/o, routine mammogram. TECHNIQUE: Bilateral screening digital breast tomosynthesis with 2D and 3D images. Computer aided detection. COMPARISON: Prior exam(s) dating back to September 26, 2017.. FINDINGS: There are scattered areas of fibroglandular density. Stable examination. No suspicious masses, areas of developing architectural distortion, or suspicious calcifications. BI/SCRN MAMM (CAD)W/RAE BILAT IMPRESSION: BI-RADS 2: BENIGN. RECOMMEND ANNUAL MAMMOGRAPHIC SCREENING. Follow-up code: Routine Follow-up The patient will be notified of the results by letter. Reading Location: [place] [id number]
--- NOTE | 2024-04-24 07:49 | BD_ITS ---
EXAM: CLINICAL INDICATION: Determine bone density. CLINICAL HISTORY: Postmenopausal COMPARISON: None TECHNIQUE: Bone densitometry of the lumbar spine and hips was performed using the HOLOGIC DEXA scanner. FINDINGS: Bone Density Measurements: SPINE AP Spine (L1-L4): 1.080 g/cm2 T-Score: 0.3 Z-Score: 2.3 WHO Classification: NORMAL LEFT FEMUR Femoral TOTAL (LEFT): 1.099 g/cm2 T-Score: 1.3 Z-Score: 2.7 WHO Classification: NORMAL Femoral NECK (LEFT): 1.033 g/cm2 T-Score: 1.7 Z-Score: 3.4 WHO Classification: NORMAL RIGHT FEMUR Femoral TOTAL (RIGHT): 0.979 g/cm2 T-Score: 0.3 Z-Score: 1.7 WHO Classification: NORMAL Femoral NECK (RIGHT): 0.879 g/cm2 T-Score: 0.3 Z-Score: 2.0 WHO Classification: Normal BD/Dexa Bone Density Study IMPRESSION: Normal bone density World Health Organization criteria for BMD interpretation classify patients as: Normal (T-score at or above -1.0), Osteopenic (T-score between -1.0 and -2.5),or Osteoporotic (T-score at or below -2.5). The presence of vertebral abnormalities such as scoliosis or osteophytes, or ao rtic/ligamentous calcifications can alter readings of the lumbar spine. In such cases, readings of the hips are more reliable. Reading Location: [place]
== END | disposition home or self-care (01) ==
LOC: OPBD 07:44
PROVIDERS: PCP Family Medicine; Referring Provider Family Medicine; Visit Provider Family Medicine
DX: Z12.31 Encounter for screening mammogram for malignant neoplasm of breast (principal); M81.0 Age-related osteoporosis without current pathological fracture
CPT/HCPCS: 77063; 77067; 77080

== ENCOUNTER → 2024-05-07 | Outpatient (CLI) | payer MEDICARE, SELFPAY ==
--- NOTE | 2024-05-07 13:20 | CT_ITS ---
PROCEDURE: ABDOMEN/PELVIS WITH CONTRAST REASON FOR EXAM: History of endometrial carcinoma. TECHNIQUE: Abdomen and pelvis CT with intravenous contrast. No oral contrast. IV CONTRAST: 100 cc of Isovue-300. COMPARISON: Comparison is made with prior study dated November 08, 2023. FINDINGS: Coronary artery calcification. Lung bases: Clear Liver: Diffuse fatty infiltration. Gallbladder: Unremarkable. Spleen: Unremarkable. Pancreas: Unremarkable. Adrenals: Unremarkable. Kidneys: Stable small left renal cyst. Stable postoperative changes seen along the lateral midportion of the right kidney. Bladder: Unremarkable. Reproductive Organs: Prior hysterectomy. Adnexal regions are unremarkable. Bowel: Colonic diverticulosis without diverticulitis. Appendix: Normal. Lymph nodes: No suspicious lymph node enlargement. Vasculature: Mild diffuse atherosclerotic calcifications are noted. A filter is seen within the inferior vena cava. Peritoneum / Retroperitoneum: No ascites. No free air. Bones: Degenerative changes of the spine. CT/Abdomen/Pelvis WITH Contrast IMPRESSION: Stable examination. One or more dose reduction techniques were used (e.g., Automated exposure contr ol, adjustment of the mA and/or kV according to patient size, use of iterative reconstruction technique). Reading Location: [facility]
[2024-05-07] MEDS: 0.9% Saline Lock 10 ML Syringe IV (13:30)
== END | disposition home or self-care (01) ==
LOC: CT 13:06
PROVIDERS: PCP Family Medicine; Referring Provider Internal Medicine Medical Oncology; Visit Provider Internal Medicine Medical Oncology
DX: C54.1 Malignant neoplasm of endometrium (principal); D30.01 Benign neoplasm of right kidney
CPT/HCPCS: 74177; Q9967

== ENCOUNTER → 2024-11-08 | Outpatient (CLI) | payer MEDICARE, SELFPAY ==
--- NOTE | 2024-11-08 12:37 | CT_ITS ---
PROCEDURE: ABDOMEN/PELVIS W IV CONT ONLY 11/08/2024 REASON FOR EXAM: HX OF ENDOMETRIAL CA Right partial nephrectomy.. TECHNIQUE: Procedure Code: [id number] Modality: CT Procedure: ABDOMEN/PELVIS W IV CONT ONLY Coronal and Sagittal reconstruction series were provided. CONTRAST: Isovue 370 VOLUME: 97 mL One or more dose reduction techniques were used (e.g., Automated exposure control, adjustment of the mA and/or kV according to patient size, use of iterative reconstruction technique. RADIATION DOSE SUMMARY: CTDlvol: 28 mGy DLP: 1005 mGycm COMPARISON: May 2024. FINDINGS: Lung bases: Negative. ABDOMEN Liver: Slight fatty infiltration of the liver. No focal mass or lesion. Biliary system: Negative. Negative for intrahepatic or extrahepatic ductal dilatation. Gallbladder: Mildly contracted. Negative for cholecystitis. Spleen: Negative. Pancreas: Negative. Adrenals: Negative. Kidneys: Surgical changes adjacent to the right kidney with no residual mass. Negative for kidney stones, cysts or masses. Bowel: Moderate increased stool throughout the colon. Diverticulosis particularly sigmoid colon with minimal adjacent inflammation. This inflammation is new since the prior exam. Negative for small or large-bowel obstruction. Appendix: Negative Vasculature: IVC filter. Negative for atherosclerotic vascular calcifications of the abdominal aorta and its branches. Peritoneum / Retroperitoneum: Negative. PELVIS Lymph nodes: Negative for inguinal or iliac adenopathy. Bladder: Urinary bladder negative. Reproductive Organs: Hysterectomy. Bones and Soft Tissues: [id number] degenerative changes of the upper lumbar spine. Otherwise age appropriate degenerative changes of the lumbar spine hips and pelvis. CT/Abdomen/Pelvis W IV Cont ONLY IMPRESSION: Hysterectomy and right partial nephrectomy. Negative for evidence of residual or recurrent neoplasm of the abdomen or pelvi s. Negative for hepatic, adrenal or bony metastatic disease. Diverticulosis Possible very mild diverticulitis of the sigmoid colon. Correlate clinically. Reading Location: [id number]
[2024-11-08] MEDS: 0.9% Saline Lock 10 ML Syringe IV (12:56)
== END | disposition home or self-care (01) ==
LOC: CT 12:34
PROVIDERS: PCP Family Medicine; Referring Provider Internal Medicine Medical Oncology; Visit Provider Internal Medicine Medical Oncology
DX: C54.1 Malignant neoplasm of endometrium (principal); D30.01 Benign neoplasm of right kidney
CPT/HCPCS: 74177; Q9967; A4216